=== PATIENT | male | born 1980 | race American Indian/Alaskan Native ===

== ENCOUNTER 2021-09-29 05:20 | Emergency (ER) | payer SELFPAY ==
[2021-09-29 05:35] VITALS: BP 134/81
--- NOTE | 2021-09-29 06:35 | Cat Scan Report ---
CT CERVICAL SPINE WITHOUT CONTRAST INDICATION / CLINICAL INFORMATION: neck pain. TECHNIQUE: Axial CT images were obtained through the cervical spine. Sagittal and coronal reformatted images were produced. All CT scans at this location are performed using CT dose reduction for ALARA by means of automated exposure control. COMPARISON: None available. FINDINGS: MANDIBLE: No significant abnormality of the visualized mandible or TMJs. SKULL BASE: No significant abnormality of the skull base. CRANIOCERVICAL JUNCTION: No significant abnormality of the craniocervical junction. CERVICAL SPINE: Straightening of lordosis is demonstrated. The cervical spine demonstrates mild narro wing of intervertebral disc space at C6-7. No cervical spine fracture is demonstrated. SOFT TISSUES: No significant abnormality of soft tissues or musculature. THYROID: No significant abnormality. UPPER CHEST: No significant abnormality of the visualized chest. ADDITIONAL FINDINGS: None. IMPRESSION: 1. No acute findings. Signer Name: Benjamin Marshall II, MD Signed: 09/29/2021 6:30 AM Workstation Name: [id number]
[2021-09-29] MEDS ORDERED: KETOROLAC 10 MG TAB PO ONE (10:46)
[2021-09-29] MEDS ORDERED: CYCLOBENZAPRINE 10 MG TAB PO ONE (10:46)
--- NOTE | 2021-09-29 12:03 | XRay Report ---
XR knee 1-2V LT INDICATION / CLINICAL INFORMATION: knee pain. COMPARISON: None available. FINDINGS: BONES/JOINT(S): No acute fracture or subluxation. Mild osteoarthritis. No focal bone erosions or foca l osteopenia to suggest inflammatory arthropathy. SOFT TISSUES: No significant abnormality. ADDITIONAL FINDINGS: None. Signer Name: Javier Teague MD Signed: 09/29/2021 11:53 AM Workstation Name: [id number]
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
== END 2021-09-29 13:23 | disposition home or self-care (01) ==
LOC: ED 05:20
DX: M54.2 Cervicalgia (principal); M25.562 Pain in left knee; V89.2XXA Person injured in unspecified motor-vehicle accident, traffic, initial encounter; Y93.89 Activity, other specified; Y92.89 Other specified places as the place of occurrence of the external cause; Y99.8 Other external cause status
CPT/HCPCS: 72125; 99284